=== PATIENT | female | born 1945 | race Caucasian/White ===

== ENCOUNTER 2018-06-06 23:40 | Inpatient (IN) ==
[2018-06-07 00:06] VITALS: TEMP 98.7
[2018-06-07 00:46] LABS: Baso % (Auto) 0.5 % (0.0-2.0); Eos # (Auto) 0.1 th/mm3 (0.0-0.4); Eos % (Auto) 0.8 % (0.0-4.0); Hematocrit 34.7 % (35.0-46.0); Lymph # (Auto) 1.2 th/mm3 (1.0-4.8); Lymph % (Auto) 11.5 % (9.0-44.0); Mean Corpuscular HGB Conc 31.7 % (32.0-36.0); Mean Corpuscular Hemoglobin 25.4 pg (27.0-34.0); Mean Corpuscular Volume 80.3 fL (80.0-100.0); Mean Platelet Volume 10.1 fL (7.0-11.0); Mono # (Auto) 1.2 th/mm3 (0.0-0.9); Mono % (Auto) 11.3 % (0.0-8.0); Neut # (Auto) 7.8 th/mm3 (1.8-7.7); Neut % (Auto) 75.9 % (16.0-70.0); Platelet Count 275 th/mm3 (150-450); Red Blood Count 4.32 mil/mm3 (4.00-5.30); Red Cell Distribution Width 16.6 % (11.6-17.2); White Blood Count 10.3 th/mm3 (4.0-11.0)
[2018-06-07 00:56] LABS: Alanine Aminotransferase 133 U/L (10-53); Albumin 2.5 g/dL (3.4-5.0); Aspartate Aminotransferase 193 U/L (15-37); Blood Urea Nitrogen 23 mg/dL (7-18); Calcium 9.1 mg/dL (8.5-10.1); Chloride 71 meq/L (98-107); Glomerular Filtration Rate 34 mL/min (>89); Sodium 132 meq/L (136-145)
[2018-06-07 01:07] LABS: Alkaline Phosphatase 1244 U/L (45-117); Total Protein 7.4 g/dL (6.4-8.2); Troponin I 0.03 ng/mL (0.02-0.05)
[2018-06-07 01:08] LABS: Anion Gap 16 meq/L (5-15)
[2018-06-07 01:12] LABS: Glucose,Random 474 mg/dL (74-106)
--- NOTE | 2018-06-07 02:26 | CT ---
EXAM DATE: 06/07/2018 2:10 AM EST AGE/SEX: 73 years / Female INDICATIONS: Trauma; fall. CLINICAL DATA: This is the patient's initial encounter. Patient reports that signs and symptoms have been present for 1 day and indicates a pain score of 6/10. MEDICAL/SURGICAL HISTORY: Diabetes. Hypertension. Liver cancer None. RADIATION DOSE: 56.35 CTDI (mGy) COMPARISON: No prior exams available for comparison. TECHNIQUE: CT of the head without contrast. Using automated exposure control and adjustment of the mA and/or kV according to patient size, radiation dose was kept as low as reasonably achievable to ob tain optimal diagnostic quality images. DICOM format image data is available electronically for revi ew and comparison. FINDINGS: Cerebrum: The ventricles are normal for age. There is a focal, mixed density subdural collection ove r the right parietal convexity measuring approximately 8 mm in depth. This may represent a subacute s ubdural with both low and high density components. Associated 3 to 4 mm [id number] subfalcine shif t. Posterior Fossa: The cerebellum and brainstem are intact. The 4th ventricle is midline. The cerebe llopontine angle is unremarkable. Extracranial: The visualized portion of the orbits is intact. Skull: The calvaria is intact. No evidence of skull fracture. Cephalohematoma over the right tank welder ior parietal region with superficial skin jeni. Some periventricular diminished attenuation is sidney racteristic of mild small vessel ischemic demyelination. Opacification of the right maxillary antra c haracteristic of a chronic sinusitis. CONCLUSION: 1. Mixed density subdural collection over the right parietal convexity may represent a small subdura l hygroma with some associated acute hemorrhage. 2. 3 to 4 mm lajg-qu-dhlhn subfalcine shift. 3. Prominent cephalohematoma over the right posterior parietal region with superficial skin jeni. . . Electronically signed by: Jaydon Deleon MD Board Certified Radiologist 06/07/2018 2:25 AM EST
--- NOTE | 2018-06-07 02:33 | ED ---
HPI General Chief Complaint: Fall Stated Complaint: Fall Time Seen by Provider: 06/06/18 23:47 Source: EMS Mode of arrival: EMS Limitations: altered mental status History of Present Illness HPI narrative: 73-year-old female came to the emergency room brought in by EMS [facility] The exact nature of the fall is unclear. Patient is very altered and has history of dementia, schizophrenia as well as terminal pancreatic cancer with biliary obstruction. Patient is very combative and unable to give any history for herself. She had significant scalp bleeding that was bandaged. She kept grabbing at the bandage and trying to get out of the bed. She was brought in initially boarded but patient wiggled out of the backboard. The [facility] paperwork work shows that patient has a surrogate candle molder machine which is her son. It also has a verbiage saying that hospice is trying to be contacted for hospice care. Related Data Home Medications Medication Instructions Recorded Confirmed Glucagon Emergency Kit (human) 1 mg PRN PRN 06/07/18 06/07/18 acetaminophen [Tylenol] 650 mg PO Q6H PRN 06/07/18 06/07/18 ascorbic acid (vitamin C) [Vitamin 1,000 mg PO DAILY 06/07/18 06/07/18 C] atorvastatin 80 mg PO QPM 06/07/18 06/07/18 clopidogrel 75 mg PO DAILY 06/07/18 06/07/18 cranberry fruit concentrate [Azo 750 mg PO DAILY 06/07/18 06/07/18 Cranberry] dextromethorphan-guaifenesin 5 ml PO Q4-6H PRN 06/07/18 06/07/18 [Robafen DM] dextrose [Glucose Gel] See Label Instructions .ROUTE 06/07/18 06/07/18 .COMPLEX PRN ibuprofen 800 mg PO QID PRN 06/07/18 06/07/18 insulin aspart U-100 [Novolog 1 sliding scale dose SUBCUT UD 06/07/18 06/07/18 U-100 Insulin aspart] insulin aspart U-100 [Novolog 8 unit SUBCUT BID 06/07/18 06/07/18 U-100 Insulin aspart] insulin glargine [Lantus U-100 45 unit SUBCUT HS 06/07/18 06/07/18 Insulin] melatonin 3 mg PO HS PRN 06/07/18 06/07/18 memantine [Namenda XR] 28 mg PO HS 06/07/18 06/07/18 metformin 1,000 mg PO BID 06/07/18 06/07/18 metoprolol tartrate 50 mg PO BID 06/07/18 06/07/18 omeprazole 20 mg PO DAILY 06/07/18 06/07/18 ondansetron HCl [Zofran] 4 mg PO TID PRN 06/07/18 06/07/18 sertraline [Zoloft] 50 mg PO DAILY 06/07/18 06/07/18 Allergies Allergy/AdvReac Type Severity Reaction Status Date / Time No Known Allergies Allergy Verified 06/07/18 03:50 Review of Systems ROS Unobtainable ROS Unobtainable: unobtainable due to mental status [facility] Medical History Medical History Anxiety (Acute) Constipation (Acute) Diabetes (Acute) Hyperlipidemia (Acute) Hypertension (Acute) Liver cancer (Acute) Pain (Acute) Social History Social History Substance History: Unable to Obtain Smoking Status: Unknown if ever smoked How Often Do You Have a Drink Containing Alcohol: Unable to Obtain Recent Travel in [facility] within the Last 8 Weeks: No Recent Out of Country Travel within the Last 8 Weeks: No Immunization History Tetanus Immunization: <5 Years Exam Narrative Exam Narrative: GENERAL: Patient is very confused, combative, elderly, anxious, moderate to significant SKIN: Focused skin assessment warm/dry. [place] HEAD: Hair is soaking wet with blood and there is a 3 cm laceration on the right parietal aspect posteriorly on the scalp. This is actively bleeding. EYES: Pupils equal and round. Scleral icterus. No injection or drainage. ENT: No nasal bleeding or discharge. Mucous membranes pink and moist. NECK: Trachea midline. No JVD. CARDIOVASCULAR: Regular rate and rhythm. No murmur appreciated. RESPIRATORY: No accessory muscle use. Clear to auscultation. Breath sounds equal bilaterally. GASTROINTESTINAL: Abdomen soft, non-tender, nondistended. Hepatic and splenic margins not palpable. MUSCULOSKELETAL: No obvious deformities. No clubbing. No cyanosis. No edema. NEUROLOGICAL: GCS of 13, combative. No obvious cranial nerve deficits. Motor grossly within normal limits. Normal speech. PSYCHIATRIC: Anxious, poor insight and judgment peer Course Initial Documented Vital Signs Temperature 98.7 F 06/06/18 23:43 Pulse Rate 106 H 06/06/18 23:43 Respiratory Rate 20 06/06/18 23:43 Blood Pressure 155/72 H 06/06/18 23:43 Pulse Oximetry 95 06/06/18 23:43 Last Documented Vital Signs Temperature 98.7 F 06/06/18 23:43 Pulse Rate 95 H 06/07/18 05:57 Respiratory Rate 18 06/07/18 05:57 Blood Pressure 154/69 H 06/07/18 05:57 Pulse Oximetry 99 06/07/18 05:01 Procedures Laceration Laceration 1: Site: scalp Side (If applicable): right Size (cm): 3 Description: linear Depth: simple, single layer Skin layer closed with: jeni Number of sutures:: 7 Critical Care Time Critical Care Time: Yes Total Critical Care Time: 45 Attestation: Aggregate critical care time was 45 minutes. Time to perform other separately billable procedures was not included in the critical care time. My time did not include minutes spent treating any other patients simultaneously or on activities that did not directly contribute to the patient's treatment. The services I provided to this patient were to treat and/or prevent clinically significant deterioration that could result in: Altered mental status, intracranial bleed, obstructive jaundice, FFP transfusion I provided critical care services requiring my management, as noted below: Chart data review, documentation time, medication orders and management, vital sign assessments/reviewing monitor data, ordering and reviewing lab tests, ordering and interpreting/reviewing x-rays and diagnostic studies, care of the patient and discussion of the patient with the admitting physicians. Medical Decision Making MDM Narrative Medical decision making narrative: 2:37 AM as expected patient has significant metabolic abnormalities and electrolyte abnormalities. Head CT shows acute on chronic subdural hematoma. Patient's son was tried to be contacted but the nurse has been unable to get hold of him at the phone number provided in the paperwork from the nursing. I discussed with [facility], Sukumar who told me that [facility] is supposed to meet the son in the morning at the penit[facility] to discuss about hospice care but this discussion has not taken place yet and patient is not currently under hospice. However with this abnormal CT I contacted Dr. Shannon from neurosurgery who agreed with the patient being admitted to the intensive care unit currently. Without being able to talk to the son patient currently is a full code. Awaiting for the biomedical engineering internship to call back. Awaiting for INR. I will order 2 units of FFP for this patient. Medical Screen Exam Complete: Yes Emergency Medical Condition: Yes Lab Data Result diagrams: 06/07/18 00:26 06/07/18 00:26 Lab Results 06/07/18 06/07/18 06/07/18 Range/Units 00:26 00:26 02:37 WBC 10.3 (4.0-11.0) th/mm3 RBC 4.32 (4.00-5.30) mil/mm3 Hgb 11.0 L (11.6-15.3) gm/dL Hct 34.7 L (35.0-46.0) % MCV 80.3 (80.0-100.0) fL MCH 25.4 L (27.0-34.0) pg MCHC 31.7 L (32.0-36.0) % RDW 16.6 (11.6-17.2) % Plt Count 275 (150-450) th/mm3 MPV 10.1 (7.0-11.0) fL Neut % (Auto) 75.9 H (16.0-70.0) % Lymph % (Auto) 11.5 (9.0-44.0) % [place] % (Auto) 11.3 H (0.0-8.0) % Eos % (Auto) 0.8 (0.0-4.0) % Baso % (Auto) 0.5 (0.0-2.0) % Neut # (Auto) 7.8 H (1.8-7.7) th/mm3 Lymph # (Auto) 1.2 (1.0-4.8) th/mm3 Dawes # (Auto) 1.2 H (0.0-0.9) th/mm3 Eos # (Auto) 0.1 (0.0-0.4) th/mm3 Baso # (Auto) 0.0 (0.0-0.2) th/mm3 WBC Differential . Differential Comment Auto diff final PT 88.3 H (9.8-11.6) sec INR 8.9 H* Ratio Sodium 132 L (136-145) meq/L Potassium 3.0 L (3.5-5.1) meq/L Chloride 71 L (98-107) meq/L Carbon Dioxide Greater than 45.0 H (21.0-32.0) meq/L Anion Gap 16 H (5-15) meq/L BUN 23 H (7-18) mg/dL Creatinine 1.49 H (0.50-1.00) mg/dL Estimated GFR 34 L (>89) mL/min Random Glucose 474 H* (74-106) mg/dL Calcium 9.1 (8.5-10.1) mg/dL Magnesium 2.0 (1.5-2.5) mg/dL Total Bilirubin 10.2 H (0.2-1.0) mg/dL AST 193 H (15-37) U/L ALT 133 H (10-53) U/L Alkaline Phosphatase 1244 H (45-117) U/L Troponin I 0.03 (0.02-0.05) ng/mL Total Protein 7.4 (6.4-8.2) g/dL Albumin 2.5 L (3.4-5.0) g/dL Urine Color (Yellw/Straw) Urine Clarity (Clear) Urine pH (5.0-8.5) Ur Specific [place] (1.002-1.035) Urine Protein (Neg-Trace) mg/dL Urine Glucose (UA) (Negative) mg/dL Urine Ketones (Negative) mg/dL Urine Occult Blood (Negative) Urine Nitrate (Negative) Urine Bilirubin (Negative) Urine Ictotest (Negative) Urine Urobilinogen (Less than 2) mg/dL Ur Leukocyte Esterase (Negative) Urine RBC (0-3) /hpf Urine WBC (0-5) /hpf Urine Bacteria (None) /hpf Urine Yeast (None) /hpf Micro UA Comment Ur Microscopic Review Urine Culture Comments Blood Type Blood Type Recheck Antibody Screen Blood Bank Comment 06/07/18 06/07/18 06/07/18 Range/Units 02:37 05:18 05:19 WBC (4.0-11.0) th/mm3 RBC (4.00-5.30) mil/mm3 Hgb (11.6-15.3) gm/dL Hct (35.0-46.0) % MCV (80.0-100.0) fL MCH (27.0-34.0) pg MCHC (32.0-36.0) % RDW (11.6-17.2) % Plt Count (150-450) th/mm3 MPV (7.0-11.0) fL Neut % (Auto) (16.0-70.0) % Lymph % (Auto) (9.0-44.0) % Daw[place] % (Auto) (0.0-8.0) % Eos % (Auto) (0.0-4.0) % Baso % (Auto) (0.0-2.0) % Neut # (Auto) (1.8-7.7) th/mm3 Lymph # (Auto) (1.0-4.8) th/mm3 Daw[place] # (Auto) (0.0-0.9) th/mm3 Eos # (Auto) (0.0-0.4) th/mm3 Baso # (Auto) (0.0-0.2) th/mm3 WBC Differential Differential Comment PT (9.8-11.6) sec INR Ratio Sodium (136-145) meq/L Potassium (3.5-5.1) meq/L Chloride (98-107) meq/L Carbon Dioxide (21.0-32.0) meq/L Anion Gap (5-15) meq/L BUN (7-18) mg/dL Creatinine (0.50-1.00) mg/dL Estimated GFR (>89) mL/min Random Glucose (74-106) mg/dL Calcium (8.5-10.1) mg/dL Magnesium (1.5-2.5) mg/dL Total Bilirubin (0.2-1.0) mg/dL AST (15-37) U/L ALT (10-53) U/L Alkaline Phosphatase (45-117) U/L Troponin I (0.02-0.05) ng/mL Total Protein (6.4-8.2) g/dL Albumin (3.4-5.0) g/dL Urine Color Dark-yellow H (Yellw/Straw) Urine Clarity Turbid H (Clear) Urine pH 5.0 (5.0-8.5) Ur Specific [place] 1.021 (1.002-1.035) Urine Protein 100 H (Neg-Trace) mg/dL Urine Glucose (UA) 500 or greater (Negative) mg/dL Urine Ketones 20 (Negative) mg/dL Urine Occult Blood Moderate H (Negative) Urine Nitrate Negative (Negative) Urine Bilirubin Moderate H (Negative) Urine Ictotest Positive H (Negative) Urine Urobilinogen Less than 2 (Less than 2) mg/dL Ur Leukocyte Esterase Negative (Negative) Urine RBC (0-3) /hpf Urine WBC 4 (0-5) /hpf Urine Bacteria Many H (None) /hpf Urine Yeast Many H (None) /hpf Micro UA Comment Culture indicated Ur Microscopic Review Not Reportable Urine Culture Comments Culture indicated Blood Type A Positive Blood Type Recheck Required Antibody Screen Negative Blood Bank Comment Cancelled Imaging Data Radiologist's impression: Head CT 06/07/18 00:00 CONCLUSION: 1. Mixed density subdural collection over the right parietal convexity may represent a small subdural hygroma with some associated acute hemorrhage. 2. 3 to 4 mm [id number] subfalcine shift. 3. Prominent cephalohematoma over the right posterior parietal region with superficial skin jeni. . . ECG Data Attestation: I personally reviewed and interpreted this ECG as follows: Interpretation: Twelve-lead EKG was reviewed by me. Normal sinus rhythm, normal axis, nonspecific ST-T wave changes. Heart rate of 100 bpm. Discharge Plan Discharge Disposition Patient Disposition: ED Admit(ED Internal Use Only) Discharge Order Discharge Orders: ED Use Only Admit Order (Routine); Ordered 06/07/18 Ordered By: Capri Cherry Physicians Team ED Provider: Capri Cherry Primary Care Provider: UNKNOWN, Attending Provider: Vicky Arredondo Status ED Status: Admitted Patient
[2018-06-07 02:52] LABS: Bilirubin,Urine Moderate (Negative); Clarity,Urine Turbid (Clear); Glucose,Urine (UA) 500 or Greater mg/dL (Negative); Leukocyte Esterase,Urine Negative (Negative); Nitrite,Urine Negative (Negative); Specific Gravity,Urine 1.021 (1.002-1.035)
[2018-06-07 02:53] LABS: Color,Urine Dark-Yellow (Yellw/Straw); Ictotest,Urine Positive (Negative)
[2018-06-07 02:55] LABS: Bacteria,Urine Many /hpf
[2018-06-07] MEDS ORDERED: Sodium Chlor 0.9% Inj 250 ML IV.SIG SCH ×2 (03:00→05:00)
[2018-06-07 03:17] LABS: Prothrombin Time 88.3 sec (9.8-11.6)
[2018-06-07 03:20] LABS: INR 8.9 Ratio
--- NOTE | 2018-06-07 03:54 | P.HPCC ---
History of Present Illness Service: Critical care medicine Primary Care Physician: UNKNOWN History of Present Illness: 73-year-old female with past medical history of dementia, diabetes, hypertension, GERD, hyperlipidemia, schizophrenia, pancreatic cancer with biliary obstruction. She presented to [facility] emergency department after a fall at the half-way. She had a right scalp laceration which was stapled in the emergency department. CT brain demonstrates right parietal subdural collection, chronic appearing but with component of acute hemorrhage, ~6mm depth with 3-4 mm of right to left midline shift. She is jaundiced with obstructive LFTs including T. Bili of 10.2. Glucose is 474 and she has acute kidney injury, contraction metabolic alkalosis, and coagulopathy with INR 8.9 as a consequence of auto anticoagulation due to liver failure. ( Not on anticoagulation). Outpatient consult to hospice has been placed and son was scheduled to meet with hospice later today at 10 am. However, the ED staff has made multiple phone calls to patient's son, Toño Mccallum, and there is no answer. He is designated as healthcare surrogate on a form from the half-way. I called at [phone] and there was no answer. I called a cell phone which is listed as the son's cell, however the voice mail has a female voice. - Diagnosis (1) SDH (subdural hematoma) (2) Scalp laceration (3) Fall (4) Liver failure (5) Coagulopathy (6) Pancreatic cancer (7) Dementia (8) HTN (hypertension) (9) Diabetes mellitus (10) CAD (coronary artery disease) (11) Metabolic alkalosis (12) LAUREN (acute kidney injury) Inpatient Certification: I certify that the inpatient services were ordered in accordance with Medicare regulations governing the order. This includes certification that hospital inpatient services are reasonable and necessary and in the case of services not specified as inpatient-only under 42 CFR 419.22(n), that they are appropriately provided as inpatient services in accordance to with the 2-midnight benchmark under 43 CFR 412.3(e) Review of Systems unobtainable due to mental status PMFSH - History History Provided By: Community Dietitian / EMT - Medical / Surgical Hx Neg / Unobtainable Surgical History: Unable to Obtain - Medical History Medical History: Medical History (Last Reviewed 06/07/18 @ 03:01 by Nicolette Mcneill) Anxiety Constipation Dementia Depression Diabetes GERD (gastroesophageal reflux disease) Hyperlipidemia Hypertension Insomnia Liver cancer Nausea Pain Schizoaffective disorder Vitamin deficiency - Family History Family History: Family History (Last Updated 06/07/18 @ 07:39 by Vicky Arredondo MD) Other Family history unobtainable - Social History I have reviewed the patient's Social History: Yes - Tobacco History Smoking Status: Unknown if ever smoked - Alcohol History How Often Do You Have a Drink Containing Alcohol: Unable to Obtain - Substance Use History Substance History: Unable to Obtain - Travel History Recent Travel in the [place] Within the Last 8 Weeks: No Recent Travel Out of the Country Within the Last 8 Weeks: No - Immunization History Tetanus Immunization: <5 Years Medications and Allergies Active Medications: Active Medications Sodium Chloride (Ns Inj) 250 mls @ 15 mls/hr IV.SIG ONCE SACHIN Stop: 06/07/18 19:39 Phytonadione 10 mg/ Sodium (Chloride) 51 mls @ 102 mls/hr IV.SIG ONCE ONE Stop: 06/07/18 04:22 Sodium Chloride (Ns Flush) 2 ml IV.FLUSH PRN PRN PRN Reason: FLUSH AFTER USING IV ACCESS Allergies Allergy/AdvReac Type Severity Reaction Status Date / Time No Known Allergies Allergy Verified 06/07/18 03:50 Home Medications Medication Instructions Recorded Confirmed Type Glucagon Emergency Kit (human) 1 mg PRN PRN 06/07/18 06/07/18 History acetaminophen [Tylenol] 650 mg PO Q6H PRN 06/07/18 06/07/18 History ascorbic acid (vitamin C) [Vitamin 1,000 mg PO DAILY 06/07/18 06/07/18 History C] atorvastatin 80 mg PO QPM 06/07/18 06/07/18 History clopidogrel 75 mg PO DAILY 06/07/18 06/07/18 History cranberry fruit concentrate [Azo 750 mg PO DAILY 06/07/18 06/07/18 History Cranberry] dextromethorphan-guaifenesin 5 ml PO Q4-6H PRN 06/07/18 06/07/18 History [Robafen DM] dextrose [Glucose Gel] See Label Instructions .ROUTE 06/07/18 06/07/18 History .COMPLEX PRN ibuprofen 800 mg PO QID PRN 06/07/18 06/07/18 History insulin aspart U-100 [Novolog 1 sliding scale dose SUBCUT UD 06/07/18 06/07/18 History U-100 Insulin aspart] insulin aspart U-100 [Novolog 8 unit SUBCUT BID 06/07/18 06/07/18 History U-100 Insulin aspart] insulin glargine [Lantus U-100 45 unit SUBCUT HS 06/07/18 06/07/18 History Insulin] melatonin 3 mg PO HS PRN 06/07/18 06/07/18 History memantine [Namenda XR] 28 mg PO HS 06/07/18 06/07/18 History metformin 1,000 mg PO BID 06/07/18 06/07/18 History metoprolol tartrate 50 mg PO BID 06/07/18 06/07/18 History omeprazole 20 mg PO DAILY 06/07/18 06/07/18 History ondansetron HCl [Zofran] 4 mg PO TID PRN 06/07/18 06/07/18 History sertraline [Zoloft] 50 mg PO DAILY 06/07/18 06/07/18 History Results - Labs CBC & Chem 7: 06/07/18 00:26 06/07/18 00:26 Labs: Short CBC 06/07/18 Range/Units 00:26 WBC 10.3 (4.0-11.0) th/mm3 Hgb 11.0 L (11.6-15.3) gm/dL Hct 34.7 L (35.0-46.0) % Plt Count 275 (150-450) th/mm3 BMP 06/07/18 00:26 Sodium 132 L Potassium 3.0 L Chloride 71 L Carbon Dioxide Greater than 45.0 H BUN 23 H Creatinine 1.49 H Calcium 9.1 Cardiac Enzymes 06/07/18 Range/Units 00:26 Troponin I 0.03 (0.02-0.05) ng/mL Liver Function 06/07/18 Range/Units 00:26 Total Bilirubin 10.2 H (0.2-1.0) mg/dL AST 193 H (15-37) U/L ALT 133 H (10-53) U/L Alkaline Phosphatase 1244 H (45-117) U/L Albumin 2.5 L (3.4-5.0) g/dL Urine 06/07/18 Range/Units 02:37 Urine Color Dark-yellow H (Yellw/Straw) Urine Clarity Turbid H (Clear) Urine pH 5.0 (5.0-8.5) Ur Specific [place] 1.021 (1.002-1.035) Urine Protein 100 H (Neg-Trace) mg/dL Urine Glucose (UA) 500 or greater (Negative) mg/dL - Imaging Impressions Head CT 06/07/18 00:00 CONCLUSION: 1. Mixed density subdural collection over the right parietal convexity may represent a small subdural hygroma with some associated acute hemorrhage. 2. 3 to 4 mm [id number] subfalcine shift. 3. Prominent cephalohematoma over the right posterior parietal region with superficial skin jeni. . . Exam Vital signs: Vital Signs 06/06/18 23:43 06/07/18 00:10 06/07/18 02:50 Temperature 98.7 F Pulse Rate 106 H 100 H 92 H Respiratory Rate 20 18 Blood Pressure 155/72 H 156/68 H Pulse Oximetry 95 96 97 06/07/18 03:30 Temperature Pulse Rate 97 H Respiratory Rate 16 Blood Pressure 134/62 Pulse Oximetry 97 Intake & Output 06/06/18 06/06/18 06/07/18 06:59 18:59 06:59 Output Total 250 / 250 Balance -250 / -250 Weight 68.039 kg Output: Urine 250 / 250 Other: # Voids 1 Narrative: GENERAL: Elderly jaundice female who is laying in left lateral decubitus position curled into a ball on ED stretcher. SKIN: Warm and dry. HEAD: Normocephalic. Hair is in a ponytail which is soaked with blood. There is about 4 cm laceration on right scalp that has been stapled. EYES: Pupils equal and round, 4 mm and reactive. +scleral icterus. . No injection or drainage. ENT: No nasal bleeding or discharge. Mucous membranes dry. NECK: Trachea midline. No JVD. CARDIOVASCULAR: Regular rate and rhythm. No murmurs rubs or gallops. RESPIRATORY: No accessory muscle use. Clear to auscultation. Breath sounds equal bilaterally. GASTROINTESTINAL: Abdomen soft, non-tender, nondistended. Bowel sounds hypoactive MUSCULOSKELETAL: Extremities without clubbing, cyanosis. NEUROLOGICAL: Opens eyes when stimulated. Mumbles, does not really speak comprehensible words. Follows simple commands by moving all extremities. Caprini VTE Risk Assessment Caprini VTE Risk Assessment: Moderate/High Risk (score >= 2) VTE Pharmacological Exception Reason: Hemorrhage Caprini Risk Assessment Model: Point Value = 1 Point Value = 2 Point Value = 3 Point Value = 5 Age 41-60 Minor surgery BMI > 25 kg/m2 Swollen legs Varicose veins or History of unexplained or recurrent spontaneous Oral contraceptives or hormone replacement Sepsis (< 1 month) Serious lung disease, including pneumonia (< 1 month) Abnormal pulmonary function Acute myocardial infarction Congestive heart failure (< 1 month) History of inflammatory bowel disease Medical patient at bed rest Age 61-74 Arthroscopic surgery Major open surgery (> 45 min) Laparoscopic surgery (> 45 min) Malignancy Confined to bed (> 72 hours) Immobilizing plaster cast Central venous access Age >= 75 History of VTE Family history of VTE Factor V Leiden Prothrombin [id number] Lupus anticoagulant Anticardiolipin antibodies Elevated serum homocysteine Heparin-induced thrombocytopenia Other congenital or acquired thrombophilia Stroke (< 1 month) Elective arthroplasty Hip, pelvis, or leg fracture Acute spinal cord injury (< 1 month) Prophylaxis Regimen: Total Risk Factor Score Risk Level Prophylaxis Regimen 0-1 Low Early ambulation 2 Moderate Order ONE of the following: *Sequential Compression Device (SCD) *Heparin 5000 units SQ BID 3-4 Higher Order ONE of the following medications: *Heparin 5000 units SQ TID *Enoxaparin/Lovenox 40 mg SQ daily (WT < 150 kg, CrCl > 30 mL/min) *Enoxaparin/Lovenox 30 mg SQ daily (WT < 150 kg, CrCl > 10-29 mL/min) *Enoxaparin/Lovenox 30 mg SQ BID (WT < 150 kg, CrCl > 30 mL/min) AND/OR *Sequential Compression Device (SCD) 5 or more Highest Order ONE of the following medications: *Heparin 5000 units SQ TID (Preferred with Epidurals) *Enoxaparin/Lovenox 40 mg SQ daily (WT < 150 kg, CrCl > 30 mL/min) *Enoxaparin/Lovenox 30 mg SQ daily (WT < 150 kg, CrCl > 10-29 mL/min) *Enoxaparin/Lovenox 30 mg SQ BID (WT < 150 kg, CrCl > 30 mL/min) AND *Sequential Compression Device (SCD) Assessment and Plan - Problem List (1) SDH (subdural hematoma) Code(s): S06.5X9A - Traumatic subdural hemorrhage with loss of consciousness of unspecified duration, initial encounter Status: Acute (2) Scalp laceration Code(s): S01.01XA - Laceration without foreign body of scalp, initial encounter Status: Acute (3) Fall Code(s): W19.XXXA - Unspecified fall, initial encounter Status: Acute (4) Liver failure Code(s): K72.90 - Hepatic failure, unspecified without coma Status: Chronic (5) Coagulopathy Code(s): D68.9 - Coagulation defect, unspecified Status: Chronic (6) Pancreatic cancer Code(s): C25.9 - Malignant neoplasm of pancreas, unspecified Status: Chronic (7) Dementia Code(s): F03.90 - Unspecified dementia without behavioral disturbance Status: Chronic (8) HTN (hypertension) Code(s): I10 - Essential (primary) hypertension Status: Chronic (9) Diabetes mellitus Code(s): E11.9 - Type 2 diabetes mellitus without complications Status: Chronic (10) CAD (coronary artery disease) Code(s): I25.10 - Atherosclerotic heart disease of [place] coronary artery without angina pectoris Status: Chronic (11) Metabolic alkalosis Code(s): E87.3 - Alkalosis Status: Acute (12) LAUREN (acute kidney injury) Code(s): N17.9 - Acute kidney failure, unspecified Status: Acute - Assessment and Plan Plan: 73 yo WF with dementia, pancreatic cancer with biliary obstruction and hepatic failure resulting in auto-anticoagulation with INR >8. Her condition was already terminal and is now compounded by the presence of acute component of SDH. She is hospice appropriate. Trying to reach son to recommend comfort based care. NEURO: Acute on chronic subdural Dementia Schizoaffective disorder Scalp laceration - repaired with jeni in the ED 06/06. Remove jeni in 7 days. Hold melatonin, Namenda, sertraline NSG consulted per Dr. Cherry. Dr. Shannon RESP: Nasal cannula wean as tolerated CV: Coronary artery disease Essential hypertension Hyperlipidemia Labetalol/hydralazine/nicardipine as needed to maintain systolic blood pressure less than 160 Hold Plavix due to intracerebral hemorrhage Hold atorvastatin Hold metoprolol 50 mg p.o. twice daily GI: Pancreatic cancer Chronic constipation Bowel regimen FEN/RENAL: Acute kidney injury Metabolic contraction alkalosis 0.9 NaCl at 125 mill liters per hour ID: History of MDRO (ESBL) Monitor for signs and symptoms of infection HEME: Coagulopathy Transfuse 4 units FFP. Follow-up INR. ENDO: Diabetes mellitus Monitor bedside glucose every 4 hours and administer medium dose insulin PROPH: SCDs for DVT prophylaxis. Protonix 40 mg IV daily for stress ulcer prophylaxis and history of GERD ACCESS: Peripheral IV Full code. I do not see advanced directives on the chart aside from designation of her son is healthcare surrogate. We will continue to contact the son. Hospice consult placed. Level 3 H and P
[2018-06-07] MEDS ORDERED: hydrALAZINE HCl Inj 20 MG/ML Vial IV.PUSH PRN (04:16)
[2018-06-07] MEDS ORDERED: Labetalol HCl Inj 100 MG/20 ML Vial IV.PUSH PRN (04:16)
[2018-06-07] MEDS ORDERED: Dextrose 50% in Water 50 ML Vial IV.PUSH PRN (04:19)
[2018-06-07] MEDS ORDERED: Bisacodyl 10 MG Supp RECTAL PRN (04:20)
[2018-06-07] MEDS ORDERED: Sodium Phosphate Inj 30 MMOL in Sodium Chlor 0.9% Inj 250 ML IV.SIG PRN (04:23)
[2018-06-07] MEDS ORDERED: Magnesium Oxide 400 MG Tablet PO PRN (04:23)
[2018-06-07] MEDS ORDERED: Potassium Chloride Liq 20 MEQ/15 ML UDC PO PRN ×2 (04:23)
[2018-06-07] MEDS ORDERED: Potassium Chlor 40 mEq Premix 40 MEQ/100 ML PIGGYBACK IV.SIG PRN ×2 (04:23)
[2018-06-07] MEDS ORDERED: Potassium Phosphate Inj 30 MMOL in Sodium Chlor 0.9% Inj 250 ML IV.SIG PRN (04:23)
[2018-06-07] MEDS ORDERED: Potassium Phosphate 500 MG Soluble Tablet PO PRN ×2 (04:23)
[2018-06-07] MEDS ORDERED: Magnesium Sulfate Inj 2 GM in Sodium Chlor 0.9% Inj 96 ML IV.SIG PRN (04:23)
[2018-06-07] MEDS ORDERED: Potassium Chlor 20 mEq Premix 20 MEQ/100 ML PIGGYBACK IV.SIG PRN ×2 (04:23)
[2018-06-07] MEDS ORDERED: Magnesium Sulfate Inj 4 GM in Sodium Chlor 0.9% Inj 92 ML IV.SIG PRN (04:23)
[2018-06-07] MEDS ORDERED: niCARdipine Inj 25 MG in Sodium Chlor 0.9% Inj 240 ML IV.CONT PRN (04:25)
[2018-06-07] MEDS ORDERED: Phytonadione Inj 10 MG in Sodium Chlor 0.9% Inj 50 ML IV.SIG ONE (04:30)
[2018-06-07] MEDS: Sod Chloride 0.9% Inj 1,000 ML IV.CONT SCH ×2 (05:22→14:13)
[2018-06-07] MEDS ORDERED: Insulin NovoLOG Aspart Correctional Sugar Inj SQ SCH (08:00)
[2018-06-07] MEDS ORDERED: Senna/Docusate Sodium 8.6/50 MG Tablet PO SCH (09:00)
[2018-06-07] MEDS ORDERED: Pantoprazole Inj 40 MG Vial IV.PUSH SCH (09:00)
[2018-06-07] MEDS ORDERED: HYDROmorphone PF Inj 0.5 MG/0.5 ML Syringe IV.PUSH PRN (09:45)
[2018-06-07 11:34] LABS: INR 1.7 Ratio; Prothrombin Time 16.9 sec (9.8-11.6)
[2018-06-07 14:14] VITALS: BP 125/63; RESP 18; O2SAT 93
[2018-06-07 14:16] VITALS: PULSE 104
--- NOTE | 2018-06-07 15:01 | ECG ---
Date Performed: 06/07/2018 Time Performed: 00:21:49 PTAGE: 73 years EKG: SINUS TACHYCARDIA POSSIBLE LEFT ATRIAL ENLARGEMENT MODERATE T-WAVE ABNORMALITY, CONSIDER IN FERIOR ISCHEMIA ABNORMAL ECG NO PREVIOUS TRACING DOCTOR: Pernell Swann Interpretating Date/Time 06/07/2018 14:58:55
[2018-06-08] MEDS ORDERED: Chlorhexidine Gluconate 2% 1 Pack (2 Cloths) TOPICAL PRN (04:00)
[2018-06-08] MEDS ORDERED: Chlorhexidine Gluconate 2% 1 Pack (2 Cloths) TOPICAL SCH (04:00)
== END 2018-06-07 15:05 | disposition hospice, inpatient (51) | DRG 82 ==
LOC: NEPD 23:40 → NEDA 06-07 02:56 → N03 06-07 06:37
PROVIDERS: ADMIT Emergency Medicine; ATTEND Emergency Medicine
CPT/HCPCS: 12001; 70450; 80053; 81001; 82948; 82962; 83735; 84484; 85025; 85610; 86850; 86900; 86901; 87086; 87641; 93005; 99285; C9113; J1170; J2405; J3430; J7030